=== PATIENT | female | born 1980 | race American Indian/Alaskan Native ===

== ENCOUNTER 2019-01-01 05:59 | Emergency (ER) | payer MEDICAID ==
[2019-01-01] MEDS ORDERED: Acetaminophen/HYDROcodone 325-5 MG Tab PO ONE (06:31)
--- NOTE | 2019-01-01 06:38 | EDM.PDOC ---
ED HPI GENERAL MEDICAL PROBLEM - General Chief Complaint: ENT Problem Stated Complaint: TOOTH ACHE Time Seen by Provider: 01/01/19 06:25 Source of Information: Reports: Patient History Limitations: Reports: No Limitations - History of Present Illness INITIAL COMMENTS - FREE TEXT/NARRATIVE: 38 yo NA female presents with dental pain progressive for about the last 24 hrs. Has a dentist in [place]. No fever or facial swelling. Pain is worse with chewing. 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: Other (see below) Other Treatments CASTING OPERATOR HELPER: unknown left upper tooth Pain Score (Numeric/FACES): 9 - Related Data Allergies Allergy/AdvReac Type Severity Reaction Status Date / Time No Known Allergies Allergy Verified 01/01/19 06:18 Home Meds: Home Meds NK [No Known Home Meds] 01/01/19 [History] Past Medical History Cardiovascular History: Reports: Hypertension Gastrointestinal History: Reports: GERD Endocrine/Metabolic History: Reports: Obesity/BMI 30+ Dermatologic History: Reports: Other (See Below) Other Dermatologic History: cyst removed from back Social & Family History - Tobacco Use Smoking Status *Q: Never Smoker - Caffeine Use Caffeine Use: Reports: Soda - Alcohol Use Days Per Week of Alcohol Use: 1 Number of Drinks Per Day: 5 Total Drinks Per Week: 5 - Recreational Drug Use Recreational Drug Use: No ED ROS ENT - Review of Systems Review Of Systems: See Below Constitutional: Reports: No Symptoms HEENT: Reports: Dental Pain Respiratory: Reports: No Symptoms Cardiovascular: Reports: No Symptoms GI/Abdominal: Reports: No Symptoms : Reports: No Symptoms Skin: Reports: No Symptoms Neurological: Reports: No Symptoms ED EXAM, ENT - Physical Exam Exam: See Below Exam Limited By: No Limitations General Appearance: Alert, WD/WN, No Apparent Distress Eye Exam: Bilateral Eye: Normal Inspection Ears: Hearing Grossly Normal Nose: Normal Inspection, No Blood Mouth/Throat: Normal Inspection, Normal Lips, Normal Oropharynx, Normal Teeth, Dental Pain, Dental Tenderness, Other (L maxillary premolar has a filling. This tooth is tender with percussion. ) Head: Atraumatic, Normocephalic. No: Facial Swelling, Facial Tenderness Neck: Normal Inspection, Non-Tender. No: Lymphadenopathy (R), Lymphadenopathy ( L) Neurological: Alert, Oriented, CN II-XII Intact, Normal Cognition, No Motor/ Sensory Deficits Psychiatric: Normal Affect, Normal Mood Skin: Warm, Dry, Intact, Normal Color, No Rash Lymphatic: No Adenopathy Course - Vital Signs Last Recorded V/S: Last Vital Signs Temp 36.8 C 01/01/19 06:21 Pulse 88 01/01/19 06:21 Resp 16 01/01/19 06:21 BP 213/118 H 01/01/19 06:21 Pulse Ox 98 01/01/19 06:21 - Orders/Labs/Meds Orders: Active Orders 24 hr Category Date Time Status Acetaminophen/HYDROcodone [Yampa 325-5 MG] Med 01/01/19 06:31 Once 1 tab PO ONETIME ONE Medication Orders Hydrocodone Bitart/Acetaminophen (Yampa 325-5 Mg) 1 tab PO ONETIME ONE Stop: 01/01/19 06:32 Meds: Medications Generic Name Dose Route Start Last Admin Trade Name Freq PRN Reason Stop Dose Admin Hydrocodone Bitart/Acetaminophen 1 tab 01/01/19 06:31 Yampa 325-5 Mg PO 01/01/19 06:32 ONETIME ONE Departure - Departure Time of Disposition: 06:45 Disposition: Home, Self-Care 01 Condition: Fair Clinical Impression: Pain, dental - Discharge Information *PRESCRIPTION DRUG MONITORING PROGRAM REVIEWED*: No *COPY OF PRESCRIPTION DRUG MONITORING REPORT IN PATIENT MITUL: No Referrals: PCP,None [Primary Care Provider] - Additional Instructions: See your dentist marilyn. Take penicillin every 6 hrs. Take ibuprofen for pain relief. Add Yampa or acetaminophen for added relief. - My Orders Last 24 Hours: My Active Orders 01/01/19 06:31 Acetaminophen/HYDROcodone [Yampa 325-5 MG] 1 tab PO ONETIME ONE - Assessment/Plan Last 24 Hours: My Active Orders 01/01/19 06:31 Acetaminophen/HYDROcodone [Yampa 325-5 MG] 1 tab PO ONETIME ONE
== END 2019-01-01 06:51 | disposition home or self-care (01) ==
LOC: JP.ED 05:59
DX: K08.89 Other specified disorders of teeth and supporting structures (principal); I10 Essential (primary) hypertension; E66.9 Obesity, unspecified
CPT/HCPCS: 99282; A9270

== ENCOUNTER 2019-02-17 07:12 | Emergency (ER) | payer MEDICAID ==
--- NOTE | 2019-02-17 07:49 | EDM.PDOC ---
ED HPI GENERAL MEDICAL PROBLEM - General Chief Complaint: Upper Extremity Injury/Pain Stated Complaint: NUMBNESS IN RIGHT HAND Time Seen by Provider: 02/17/19 07:35 Source of Information: Reports: Patient History Limitations: Reports: No Limitations - History of Present Illness INITIAL COMMENTS - FREE TEXT/NARRATIVE: 38-year-old female who woke up with right wrist soreness, slight swelling and slight numbness to the hands morning. She has a drop of repetitive motion of the hands was sweeping, and she also received an IV infusion in the right arm 4 days ago. No redness or warmth. Onset: Unknown/Unsure (developed overnight) Associated Symptoms: Reports: No Other Symptoms Right Hand Pain Score (Numeric/FACES): 7 - Related Data Allergies Allergy/AdvReac Type Severity Reaction Status Date / Time No Known Allergies Allergy Verified 02/17/19 07:37 Home Meds: Home Meds Chlorthalidone 50 mg PO DAILY 02/17/19 [History] Potassium Chloride 20 meq PO BID 02/17/19 [History] Past Medical History Cardiovascular History: Reports: Hypertension Gastrointestinal History: Reports: GERD Endocrine/Metabolic History: Reports: Obesity/BMI 30+ Dermatologic History: Reports: Other (See Below) Other Dermatologic History: cyst removed from back Social & Family History - Tobacco Use Smoking Status *Q: Never Smoker - Caffeine Use Caffeine Use: Reports: Soda - Recreational Drug Use Recreational Drug Use: No Review of Systems - Review of Systems Review Of Systems: See Below Constitutional: Denies: Fever Respiratory: Denies: Shortness of Breath Cardiovascular: Denies: Chest Pain GI/Abdominal: Denies: Abdominal Pain Skin: Reports: Other (Some bruising on the right forearm and right wrist) Neurological: Reports: Paresthesia (A small amount of numbness in the right hand ) ED EXAM, GENERAL - Physical Exam Exam: See Below Exam Limited By: No Limitations General Appearance: Alert, No Apparent Distress Respiratory/Chest: No Respiratory Distress Extremities: Other (Exam is otherwise limited to the right arm. There a few small bruises on the flexor surface of the forearm from recent infusions. Slight swelling to the wrist and dorsum of the hand with tenderness with flexion and extension of the wrist against resistance. Palpation tenderness seems to be most significant on the flexor surface of the wrist) Course - Vital Signs Last Recorded V/S: Last Vital Signs Temp 98.3 F 02/17/19 07:30 Pulse 78 02/17/19 07:30 Resp 16 02/17/19 07:30 BP 141/86 H 02/17/19 07:30 Pulse Ox 93 L 02/17/19 07:30 - Re-Assessments/Exams Free Text/Narrative Re-Assessment/Exam: 02/17/19 07:47 Patient has some inflammation of the wrist, possibly tendinitis or vasculitis from the recent infusion but no evidence of infection. She'll be placed in a wrist splint, given 50 mg of prednisone daily for 3 consecutive days, and recheck next week. I'll write her a note to be off work today. Departure - Departure Time of Disposition: 08:05 Disposition: Home, Self-Care 01 Condition: Good Clinical Impression: Right wrist tendinitis - Discharge Information Instructions: Tendinitis, Tendinitis, [id number] Referrals: PCP,None [Primary Care Provider] - Forms: ED Department Discharge Care Plan Goals: Wear the wrist splint through the weekend, take 5 pills of prednisone with your first meal of the day today Wednesday and Wednesday. Recheck early next week at the clinic if not improving satisfactorily. Return sooner if worsening such as fever or redness or increased pain.
== END 2019-02-17 08:01 | disposition home or self-care (01) ==
LOC: JP.ED 07:12
DX: M77.9 Enthesopathy, unspecified (principal); I10 Essential (primary) hypertension; Z79.899 Other long term (current) drug therapy
CPT/HCPCS: 99283

== ENCOUNTER 2019-04-15 07:28 | Emergency (ER) | payer MEDICAID ==
[2019-04-15] MEDS ORDERED: methylPREDNISolone Sodium Succinate 125 MG/2 ML SDV IM ONE (08:52)
[2019-04-15] MEDS ORDERED: diphenhydrAMINE 25 MG Cap PO ONE (08:52)
--- NOTE | 2019-04-15 08:57 | EDM.PDOC ---
ED HPI GENERAL MEDICAL PROBLEM - General Chief Complaint: Skin Complaint Stated Complaint: POSSIBLE ALLERGIC REACTION Time Seen by Provider: 04/15/19 08:45 Source of Information: Reports: Patient History Limitations: Reports: No Limitations - History of Present Illness INITIAL COMMENTS - FREE TEXT/NARRATIVE: 38-year-old female who is felt fine, woke up this morning with her nose itching in her left arm itching. Over the course of last hour she's had some erythema and swelling of the nose, and scattered hives formed on the extremities and back. She is not on any medication, has not been ill, has no issues breathing. No previous history of hives. Onset: Gradual, Unknown/Unsure (Symptoms started overnight while sleeping) Associated Symptoms: Reports: No Other Symptoms - Related Data Allergies Allergy/AdvReac Type Severity Reaction Status Date / Time No Known Allergies Allergy Verified 04/15/19 07:54 Home Meds: Home Meds Potassium Chloride 20 meq PO BID 02/17/19 [History] hydroCHLOROthiazide [Hydrochlorothiazide] 25 mg PO DAILY 04/15/19 [History] Past Medical History Cardiovascular History: Reports: Hypertension Gastrointestinal History: Reports: GERD Endocrine/Metabolic History: Reports: Obesity/BMI 30+ Dermatologic History: Reports: Other (See Below) Other Dermatologic History: cyst removed from back Social & Family History - Tobacco Use Smoking Status *Q: Never Smoker - Caffeine Use Caffeine Use: Reports: Coffee - Recreational Drug Use Recreational Drug Use: No ED ROS GENERAL - Review of Systems Review Of Systems: See Below Constitutional: Denies: Fever, Chills HEENT: Reports: Other (Nose is swollen, red) Respiratory: Denies: Shortness of Breath, Wheezing, Cough GI/Abdominal: Reports: No Symptoms Skin: Reports: Other (Scattered urticarial lesions on the arms and back, upper chest and the nose is diffusely erythematous and swollen) ED EXAM, SKIN/RASH Exam: See Below Exam Limited By: No Limitations General Appearance: Alert, No Apparent Distress Eye Exam: Bilateral Eye: Normal Inspection Nose: Other (Nasal turbinates are normal, airways are patent but the external nose is erythematous and slightly swollen, not warm to touch) Head: Atraumatic Respiratory/Chest: No Respiratory Distress, Lungs Clear Extremities: Other (Several scattered urticarial lesions, blanching palpation on the arms, also on the back) Neurological: Alert, Oriented Course - Vital Signs Last Recorded V/S: Last Vital Signs Temp 95.3 F L 04/15/19 07:51 Pulse 78 04/15/19 07:51 Resp 22 H 04/15/19 07:51 BP 172/101 H 04/15/19 07:51 Pulse Ox 96 04/15/19 07:51 - Orders/Labs/Meds Meds: Medications Discontinued Medications Generic Name Dose Route Start Last Admin Trade Name Cuate PRN Reason Stop Dose Admin Diphenhydramine HCl 50 mg 04/15/19 08:52 04/15/19 09:00 Benadryl PO 04/15/19 08:53 50 mg ONETIME ONE Administration Methylprednisolone Sodium Succinate 125 mg 04/15/19 08:52 04/15/19 09:01 Solu-Medrol IM 04/15/19 08:53 125 mg ONETIME ONE Administration - Re-Assessments/Exams Free Text/Narrative Re-Assessment/Exam: 04/15/19 08:55 The patient is reacting to something, unknown, with urticaria and some swelling of the nose. She may have gotten bit on the nose while sleeping. No airway compromise, she has not treated any symptoms with any medications. She was given 50 mg of oral Benadryl and 125 mg of IM Solu-Medrol. An Instymed for more Benadryl to repeat every 4 hours was supplied and she'll return if she is worsening such as difficulty breathing. She can also recheck in 2-3 days if not improving. Departure - Departure Time of Disposition: 09:03 Disposition: Home, Self-Care 01 Clinical Impression: Urticaria - Discharge Information Instructions: Hives Referrals: Alecia Palacios MD [Primary Care Provider] - Forms: ED Department Discharge Care Plan Goals: Repeat Benadryl 50 mg every 4-6 hours for persistent hives and itching. Recheck in 2-3 days if not improving satisfactorily or return sooner if worsening such as difficulty breathing.
== END 2019-04-15 09:04 | disposition home or self-care (01) ==
LOC: JP.ED 07:28
DX: L50.9 Urticaria, unspecified (principal); I10 Essential (primary) hypertension; E66.9 Obesity, unspecified; K21.9 Gastro-esophageal reflux disease without esophagitis
CPT/HCPCS: 96372; 99282; A9270; J2930

== ENCOUNTER 2019-04-24 17:06 | Emergency (ER) | payer MEDICAID ==
--- NOTE | 2019-04-24 17:32 | EDM.PDOC ---
ED HPI GENERAL MEDICAL PROBLEM - General Chief Complaint: Skin Complaint Stated Complaint: HIVES Time Seen by Provider: 04/24/19 17:15 Source of Information: Reports: Patient, Old Records, RN History Limitations: Reports: No Limitations - History of Present Illness INITIAL COMMENTS - FREE TEXT/NARRATIVE: 38 yo NA female presents with an itchy rash she has had for nearly a week. She is taking Benedryl that reduces the itch, but does not take it away. Has not been to the clinic. No throat or breathing issues. 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: Reports: Other (see below) (Benedryl) - Related Data Allergies Allergy/AdvReac Type Severity Reaction Status Date / Time No Known Allergies Allergy Verified 04/15/19 07:54 Home Meds: Home Meds Potassium Chloride 20 meq PO BID 02/17/19 [History] hydroCHLOROthiazide [Hydrochlorothiazide] 25 mg PO DAILY 04/15/19 [History] diphenhydrAMINE HCl [Benadryl] 25 mg PO BID 04/24/19 [History] predniSONE [Prednisone] 20 mg PO BID #20 tablet 04/24/19 [Rx] Past Medical History Cardiovascular History: Reports: Hypertension Gastrointestinal History: Reports: GERD Endocrine/Metabolic History: Reports: Obesity/BMI 30+ Dermatologic History: Reports: Other (See Below) Other Dermatologic History: cyst removed from back Social & Family History - Tobacco Use Smoking Status *Q: Never Smoker - Caffeine Use Caffeine Use: Reports: Coffee - Recreational Drug Use Recreational Drug Use: No ED ROS GENERAL - Review of Systems Review Of Systems: See Below Constitutional: Reports: No Symptoms HEENT: Reports: No Symptoms Respiratory: Reports: No Symptoms Cardiovascular: Reports: No Symptoms GI/Abdominal: Reports: No Symptoms : Reports: No Symptoms Musculoskeletal: Reports: No Symptoms Skin: Reports: Pruritis, Rash Neurological: Reports: No Symptoms ED EXAM, SKIN/RASH Exam: See Below Exam Limited By: No Limitations General Appearance: Alert, WD/WN, No Apparent Distress, Obese Eye Exam: Bilateral Eye: Normal Inspection Ears: Normal External Exam, Normal Canal, Hearing Grossly Normal, Normal TMs Nose: Normal Inspection, No Blood Throat/Mouth: Normal Inspection, Normal Lips, Normal Oropharynx, Normal Voice, No Airway Compromise Head: Atraumatic, Normocephalic Neck: Normal Inspection Respiratory/Chest: No Respiratory Distress, Lungs Clear, Normal Breath Sounds, No Accessory Muscle Use. No: Wheezing Cardiovascular: Regular Rate, Rhythm, No Edema Extremities: Normal Inspection, Normal Range of Motion, Non-Tender, No Pedal Edema Neurological: Alert, Oriented, CN II-XII Intact, Normal Cognition, No Motor/ Sensory Deficits Psychiatric: Normal Affect, Normal Mood Skin: Warm, Dry, Intact, Erythema (slight), Rash. No: Normal Color, No Rash, Increased Warmth, Lymphangitis, Wound/Incision, Zoster-Like Rash Location, Skin: Generalized (excludes palms, head, neck, soles) Characteristics: Confluent, Patchy, Erythematous. No: Linear, Polycyclic Associated features: No: Warmth, Tenderness, Swelling Course - Vital Signs Last Recorded V/S: Last Vital Signs Temp 35.7 C 04/24/19 17:20 Pulse 102 H 04/24/19 17:20 Resp 19 04/24/19 17:20 BP 162/100 H 04/24/19 17:20 Pulse Ox 94 L 04/24/19 17:20 Departure - Departure Time of Disposition: 17:35 Disposition: Home, Self-Care 01 Condition: Good Clinical Impression: Contact dermatitis Qualifiers: Contact dermatitis type: unspecified Contact dermatitis trigger: unspecified trigger Qualified Code(s): L25.9 - Unspecified contact dermatitis, unspecified cause - Discharge Information *PRESCRIPTION DRUG MONITORING PROGRAM REVIEWED*: No *COPY OF PRESCRIPTION DRUG MONITORING REPORT IN PATIENT MITUL: No Prescriptions: predniSONE [Prednisone] 20 mg PO BID #20 tablet Instructions: Contact Dermatitis, [id number] Referrals: Alecia Palacios MD [Primary Care Provider] - Additional Instructions: Take prednisone with food as directed. Take diphenhydramine 50 mg every 4-6 hrs for itching. Wash and dry clothing you plan on wearing with hypoallergenic laundry detergent and fabric softeners. Use Dove Unscented or uncolored/ unscented glycerin soap to wash your skin. Avoid scratching. Recheck with your provider the end of the week, call for an appt.
== END 2019-04-24 17:45 | disposition home or self-care (01) ==
LOC: JP.ED 17:06
DX: L25.9 Unspecified contact dermatitis, unspecified cause (principal); I10 Essential (primary) hypertension; Z79.899 Other long term (current) drug therapy
CPT/HCPCS: 99282

== ENCOUNTER 2019-06-30 07:18 | Emergency (ER) | payer MEDICAID ==
[2019-06-30] MEDS ORDERED: Acetaminophen/Codeine 300-30 MG Tab PO ONE (07:43)
--- NOTE | 2019-06-30 07:45 | EDM.PDOC ---
ED HPI GENERAL MEDICAL PROBLEM - General Chief Complaint: ENT Problem Stated Complaint: POSSIBLE EAR INFECTION RIGHT SIDE Time Seen by Provider: 06/30/19 07:42 Source of Information: Reports: Patient History Limitations: Reports: No Limitations - History of Present Illness INITIAL COMMENTS - FREE TEXT/NARRATIVE: pt arrived with pain in the rt ear. The pain started several hours ago and she is rating the pain at a 8. She is not prone to having ear infections She does not have a fever. Onset: Today Duration: Hour(s): Right Ear Pain Score (Numeric/FACES): 8 - Related Data Allergies Allergy/AdvReac Type Severity Reaction Status Date / Time No Known Allergies Allergy Verified 04/15/19 07:54 Home Meds: Home Meds hydroCHLOROthiazide [Hydrochlorothiazide] 25 mg PO DAILY 04/15/19 [History] Past Medical History Cardiovascular History: Reports: Hypertension Gastrointestinal History: Reports: GERD Endocrine/Metabolic History: Reports: Obesity/BMI 30+ Dermatologic History: Reports: Other (See Below) Other Dermatologic History: cyst removed from back Social & Family History - Tobacco Use Smoking Status *Q: Never Smoker - Caffeine Use Caffeine Use: Reports: Energy Drinks, Soda - Recreational Drug Use Recreational Drug Use: No ED ROS ENT - Review of Systems Review Of Systems: See Below Constitutional: Reports: No Symptoms HEENT: Reports: Ear Pain Respiratory: Reports: No Symptoms Cardiovascular: Reports: No Symptoms Endocrine: Reports: No Symptoms GI/Abdominal: Reports: No Symptoms : Reports: No Symptoms Musculoskeletal: Reports: No Symptoms Skin: Reports: No Symptoms ED EXAM, ENT - Physical Exam Exam: See Below Text/Narrative:: pt arrived with a sudden onset of rt ear pain. Exam Limited By: No Limitations General Appearance: Alert, Anxious, Mild Distress Ears: Other ( left drum is normal the rt drum looks like there is slight bulging. The drum is red. ) Nose: Normal Inspection Mouth/Throat: Normal Inspection Head: Atraumatic Neck: Lymphadenopathy (R), Other (mild glandular swelling. ) Respiratory/Chest: No Respiratory Distress Cardiovascular: Regular Rate, Rhythm GI/Abdominal: Soft, Non-Tender Rectal (Female) Exam: Deferred Back: Normal Inspection Extremities: Normal Inspection Neurological: Alert, Oriented, Normal Cognition Course - Vital Signs Last Recorded V/S: Last Vital Signs Temp 37.2 C 06/30/19 07:31 Pulse 113 H 06/30/19 07:31 Resp 16 06/30/19 07:31 BP 175/105 H 06/30/19 07:31 Pulse Ox 96 06/30/19 07:31 - Orders/Labs/Meds Meds: Medications Discontinued Medications Generic Name Dose Route Start Last Admin Trade Name Freq PRN Reason Stop Dose Admin Acetaminophen/Codeine Phosphate 1 tab 06/30/19 07:43 Tylenol With Codeine No.3 300mg/30mg PO 06/30/19 07:44 ONETIME ONE Departure - Departure Time of Disposition: 07:43 Disposition: Home, Self-Care 01 Condition: Fair Clinical Impression: Otitis media, right - Discharge Information Referrals: Alecia Palacios MD [Primary Care Provider] - Forms: ED Department Discharge Care Plan Goals: push fluids, motrin 600mg q6h as needed for pain. amoxicillin 500mg 2 tabs bid.
== END 2019-06-30 08:00 | disposition home or self-care (01) ==
LOC: JP.ED 07:18
DX: H66.91 Otitis media, unspecified, right ear (principal); E66.9 Obesity, unspecified; Z68.42 Body mass index [BMI] 45.0-49.9, adult
CPT/HCPCS: 99283; A9270

== ENCOUNTER 2021-02-09 09:07 | Emergency (ER) | payer MEDICAID ==
--- NOTE | 2021-02-09 09:44 | EDM.PDOC ---
ED HPI GENERAL MEDICAL PROBLEM - General Chief Complaint: ENT Problem Stated Complaint: POSSIBLE STREP Time Seen by Provider: 02/09/21 09:25 Source of Information: Reports: Patient History Limitations: Reports: No Limitations - History of Present Illness INITIAL COMMENTS - FREE TEXT/NARRATIVE: 40-year-old female has had a sore throat for the last 2 days, not sure if she has been feverish but she has no other symptoms. No ear pain, cough or shortness of breath. She is concerned she may have strep throat. Onset: Gradual Duration: Day(s): (2 days) Location: Reports: Other (Sore throat only) Associated Symptoms: Reports: No Other Symptoms Throat Pain Score (Numeric/FACES): 9 - Related Data Allergies Allergy/AdvReac Type Severity Reaction Status Date / Time No Known Allergies Allergy Verified 02/09/21 09:14 Home Meds: Home Meds hydroCHLOROthiazide [Hydrochlorothiazide] 25 mg PO DAILY 02/09/21 [History] Past Medical History Cardiovascular History: Reports: Hypertension Gastrointestinal History: Reports: GERD Endocrine/Metabolic History: Reports: Obesity/BMI 30+ Dermatologic History: Reports: Other (See Below) Other Dermatologic History: cyst removed from back - Infectious Disease History Infectious Disease History: Reports: Chicken Pox, Novel Coronavirus Social & Family History - Tobacco Use Tobacco Use Status *Q: Never Tobacco User Second Hand Smoke Exposure: No - Caffeine Use Caffeine Use: Reports: Energy Drinks, Soda - Alcohol Use Days Per Week of Alcohol Use: 1 Number of Drinks Per Day: 2 Total Drinks Per Week: 2 - Recreational Drug Use Recreational Drug Use: No ED ROS GENERAL - Review of Systems Review Of Systems: See Below Constitutional: Reports: Malaise. Denies: Fever, Chills HEENT: Reports: Throat Pain. Denies: Ear Pain Respiratory: Denies: Shortness of Breath, Cough Cardiovascular: Denies: Chest Pain GI/Abdominal: Denies: Nausea, Vomiting : Reports: No Symptoms Skin: Reports: No Symptoms Neurological: Reports: No Symptoms ED EXAM, GENERAL - Physical Exam Exam: See Below Exam Limited By: No Limitations General Appearance: Alert, No Apparent Distress Eye Exam: Bilateral Eye: Normal Inspection Ears: Normal TMs Throat/Mouth: Other (Mild pharyngeal and tonsillar erythema, no exudate) Neck: No: Lymphadenopathy (R), Lymphadenopathy (L) Respiratory/Chest: No Respiratory Distress, Lungs Clear Neurological: Alert, Oriented Psychiatric: Normal Affect, Normal Mood Skin Exam: Warm, Dry Course - Vital Signs Last Recorded V/S: Last Vital Signs Temp 97.5 F 02/09/21 09:30 Pulse 80 02/09/21 09:30 Resp 14 02/09/21 09:30 BP 162/91 H 02/09/21 09:30 Pulse Ox 100 02/09/21 09:30 - Orders/Labs/Meds Orders: Active Orders 24 hr Category Date Time Status CULTURE STREP A CONFIRMATION [RM] Routine Lab 02/09/21 09:38 Results STREP SCRN A RAPID W CULT CONF [RM] Routine Lab 02/09/21 09:38 Results - Re-Assessments/Exams Free Text/Narrative Re-Assessment/Exam: 02/09/21 09:44 Rapid strep was obtained. 02/09/21 09:55 Strep is negative, patient was encouraged to push fluids, use ibuprofen, and return if worsening or concerns. Departure - Departure Time of Disposition: 10:06 Disposition: Home, Self-Care 01 Clinical Impression: Acute viral pharyngitis - Discharge Information Instructions: Pharyngitis, [id number] Referrals: Mattie Curry PA-C [Primary Care Provider] - Forms: ED Department Discharge Care Plan Goals: Stay hydrated with lots of water, ibuprofen and lozenges may be helpful. Consider rechecking in 3 to 4 days if not improving satisfactorily. Sepsis Event Note (ED) - Evaluation Sepsis Screening Result: No Definite Risk - Focused Exam Vital Signs: Vital Signs Temp Pulse Resp BP Pulse Ox 02/09/21 09:30 97.5 F 80 14 162/91 H 100 02/09/21 09:16 97.5 F 80 14 162/91 H 100 - My Orders Last 24 Hours: My Active Orders 02/09/21 09:38 CULTURE STREP A CONFIRMATION [RM] Routine STREP SCRN A RAPID W CULT CONF [RM] Routine - Assessment/Plan Last 24 Hours: My Active Orders 02/09/21 09:38 CULTURE STREP A CONFIRMATION [RM] Routine STREP SCRN A RAPID W CULT CONF [RM] Routine
== END 2021-02-09 10:07 | disposition home or self-care (01) ==
LOC: JP.ED 09:07
DX: J02.8 Acute pharyngitis due to other specified organisms (principal); I10 Essential (primary) hypertension; E66.9 Obesity, unspecified; Z68.38 Body mass index [BMI] 38.0-38.9, adult
CPT/HCPCS: 87081; 87880-QW; 99283

== ENCOUNTER 2021-12-19 11:41 | Emergency (ER) | payer MEDICAID ==
[2021-12-19] MEDS ORDERED: Ketorolac 30 MG/ML SDV IM ONE (12:17)
== END 2021-12-19 13:09 | disposition home or self-care (01) ==
LOC: JP.ED 11:41
DX: R51.9 Headache, unspecified (principal); I10 Essential (primary) hypertension; E66.9 Obesity, unspecified; Z68.39 Body mass index [BMI] 39.0-39.9, adult; Z86.16 Personal history of COVID-19; Z79.899 Other long term (current) drug therapy
CPT/HCPCS: 96372; 99282; 99283; J1885

== ENCOUNTER 2022-03-10 18:22 | Emergency (ER) | payer MEDICAID | END 2022-03-10 19:28 | disposition home or self-care (01) | LOC: JP.ED 18:22 | DX: B35.4 Tinea corporis (principal); I10 Essential (primary) hypertension; K21.9 Gastro-esophageal reflux disease without esophagitis; E66.9 Obesity, unspecified; Z79.899 Other long term (current) drug therapy; Z86.16 Personal history of COVID-19; Z68.39 Body mass index [BMI] 39.0-39.9, adult | CPT/HCPCS: 99282 ==

== ENCOUNTER 2023-03-18 19:12 | Emergency (ER) | payer MEDICAID | END 2023-03-18 21:02 | disposition left against medical advice (07) | LOC: JP.ED 19:12 | DX: Z53.21 Procedure and treatment not carried out due to patient leaving prior to being seen by health care provider (principal) ==